=== PATIENT | male | born 1960 | race Caucasian/White ===

== ENCOUNTER 2017-03-19 15:02 | Emergency (ER) | payer OTHER ==
[~2017-03-19] VITALS: Ht 170.2 cm; Wt 75.7 kg
--- NOTE | ~2017-03-19 | CR142 ---
[facility] A Service of [facility] & [facility] RADIOLOGY TEXT RESULTS PATIENT: SPENCER AREVALO LOCATION: [facility] : 64 UNIT #: [id number] AGE: [address]: Kym Bridges MD SEX: M ORDER DR: [id number] [facility] [address]. [place], [place] [address] [id number] E MR#: [id number] #: [id number] NAME: SPENCER AREVALO : 1960 SEX: M STUDY DATE/TIME: 03/19/2017 15:55 UNIT: [facility] ROOM: STUDY DESCRIPTION: CR Hand Min 3 Views Rt Attending Physician: Kym Bridges M.D. Ordering Physician: Kym Bridges M.D. Primary Care Physician: Jayro Lang M.D. MEDICAL IMAGING REPORT This report is preliminary unless electronic signature is present EXAM Right hand 3 views INDICATION Right fourth finger pain. Dog bite. No comparisons. FINDINGS There is a tiny ossicle adjacent to the distal phalanx of the fourth digit which may be a tiny avulsion injury. No dislocation. Soft tissue structures are unremarkable. IMPRESSION A tiny ossification adjacent to the distal phalanx of the fourth digit may be the result of a tiny avulsion fracture. Dictated by... Candelario Staples M.D. THIS IS AN ELECTRONICALLY VERIFIED REPORT Candelario Staples M.D. at 03/20/2017 4:44 PM MAICOL/mehul TD: 03/20/2017 03:06 JOB #: [id number] MEDICAL IMAGING REPORT Page 1 of 1 COPY
[~2017-03-19 15:02] MED LIST: ERYTHROMYCIN OPTH; VICODIN 5/500 T1 TAB PO
== END 2017-03-19 17:50 | disposition home or self-care (01) ==
LOC: CED 15:02
DX: S81.031A Puncture wound without foreign body, right knee, initial encounter (principal); M20.012 Mallet finger of left finger(s); W54.0XXA Bitten by dog, initial encounter; Y92.9 Unspecified place or not applicable; Z23 Encounter for immunization
CPT/HCPCS: 29130; 36415; 73130; 90471; 90715; 99283